=== PATIENT | male | born 1965 | race Caucasian/White ===

== ENCOUNTER 2019-03-21 06:42 | Observation (INO) | payer OTHER ==
[~2019-03-21] VITALS: Ht 172.7 cm; Wt 73.4 kg
[2019-03-21] MEDS ORDERED: SODIUM CHLORIDE 0.9% 1,000 ML IV SCH (07:06)
[2019-03-21 07:08] VITALS: BP 122/78
[2019-03-21] MEDS ORDERED: ALLO300T PO (07:17)
[2019-03-21] MEDS ORDERED: MONT10TA9 PO (07:17)
[2019-03-21] MEDS ORDERED: ISOPROTERENOL 0.2MG/ML, 5ML ONE (08:01)
[2019-03-21] MEDS ORDERED: ADENOSINE 6 MG/2 ML ONE (08:01)
[2019-03-21] MEDS ORDERED: LIDOCAINE 2%, 20ML ONE (08:01)
[2019-03-21] MEDS ORDERED: MIDAZOLAM 1 MG/ML, 5ML ONE (08:07)
[2019-03-21] MEDS ORDERED: FENTANYL PF 100 MCG/2ML ONE (08:07)
[2019-03-21] MEDS ORDERED: LIDOCAINE 1%, 20ML ONE ×2 (09:25→10:46)
[2019-03-21] MEDS ORDERED: HEPARIN 1,000 UNITS/ML, 10ML ONE (09:29)
[2019-03-21] MEDS ORDERED: PROTAMINE SULFATE 10 MG/ML, 5ML ONE (11:40)
[2019-03-21] MEDS ORDERED: ASPIRIN 325 MG TABLET EC PO ONE (12:00)
[2019-03-21 16:48] VITALS: BP 132/67
[2019-03-21 18:16] VITALS: BP 134/86
[2019-03-21] MEDS ORDERED: FLU VACC QS2019-20 36MOS UP/PF 0.5 ML IM-VACC ONE (19:30)
[2019-03-21 19:48] VITALS: BP 121/79
[2019-03-21] MEDS ORDERED: ACETAMINOPHEN 325 MG TABLET PO PRN (22:30)
[2019-03-22 02:05] VITALS: BP 111/69
[2019-03-22] MEDS ORDERED: MORPHINE SULFATE 4 MG/ML, 1ML IVPush PRN (03:00)
[2019-03-22] MEDS: LIDODERM 5% PATCH TD SCH (03:21)
[2019-03-22 06:59] VITALS: BP 119/81
[2019-03-22 08:47] VITALS: BP 127/82
[2019-03-22 10:56] LABS: ALANINE AMINOTRANSFERASE 20 U/L (12-78); ALBUMIN 3.2 g/dL (3.4-5.0); ANION GAP 5 mmol/L (5-15); CALCIUM 8.4 mg/dL (8.5-10.1); CHLORIDE 107 mmol/L (98-107)
[2019-03-22 10:58] LABS: ALKALINE PHOSPHATASE 59 U/L (45-117); BILIRUBIN,TOTAL 0.8 mg/dL (0.2-1.0); TOTAL PROTEIN 6.7 g/dL (6.4-8.2)
[2019-03-22 13:11] VITALS: BP 131/75
[2019-03-22] MEDS ORDERED: OMNIPAQUE 350 MG/ML, 100ML BOTTLE ONE (13:25)
[2019-03-22] MEDS ORDERED: LIDODERM REMOVE PATCH NOTE XX SCH (15:00)
[2019-03-22] MEDS: KETOROLAC 30 MG/1 ML IVPush PRN (16:04)
[2019-03-22 20:43] VITALS: BP 119/71
[2019-03-23 01:46] VITALS: BP 110/63
[2019-03-23] MEDS: LIDODERM 5% PATCH TD SCH (03:00)
[2019-03-23 06:57] VITALS: BP 115/71
[2019-03-23] MEDS ORDERED: ASPI325T17 PO (10:23)
[2019-03-23 12:32] VITALS: BP 129/76
[2019-03-23] MEDS: KETOROLAC 30 MG/1 ML IVPush PRN (12:36)
== END 2019-03-23 12:55 | disposition home or self-care (01) ==
LOC: CACL 06:42 → ORIP 11:40 → 5SO 16:27
PROVIDERS: ADMIT Internal Medicine Cardiovascular Disease; ATTEND Internal Medicine Cardiovascular Disease
DX: I47.2 Ventricular tachycardia (principal); M10.9 Gout, unspecified; Z79.82 Long term (current) use of aspirin; Z23 Encounter for immunization
CPT/HCPCS: 0399T; 71275; 80053; 85347; 90471; 90686; 93005; 93306; 93454; 93623; 93654; 96374; 96375; 96376; 99156; 99157; C1760; C1894; C2630; G0378; J0153; J1644; J1885; J2250; J2270; J2720; J3010; J3490; Q9967